=== PATIENT | female | born 1995 | race Caucasian/White ===

== ENCOUNTER 2017-08-18 21:12 | Emergency (ER) | payer OTHER ==
[~2017-08-18] VITALS: Ht 165.1 cm; Wt 81.5 kg
[2017-08-18 21:21] VITALS: TEMP 36.4; Ht 165.1 cm; Wt 81.5 kg
[2017-08-18] MEDS ORDERED: ONDANSETRON INJ 2 MG/ML 2 ML VIAL IV STA (21:47)
[2017-08-18] MEDS ORDERED: SODIUM CHLORIDE 0.9% 1000ML 1,000 ML IV STA (21:47)
[2017-08-18] MEDS ORDERED: KETOROLAC TROMETHAMINE 30 MG/ML VIAL IV STA (21:47)
[2017-08-18 22:07] VITALS: O2SAT 96
[2017-08-18 22:17] LABS: BASO % 0.4 %; BASO ABS # 0.06 K/uL (0-0.2); EOS % 1.1 %; EOS ABS # 0.18 K/uL (0-0.5); HEMATOCRIT 46.6 % (37-47); HEMOGLOBIN 15.5 g/dL (12.0-16.0); IG# 0.07 K/uL (0.00-0.02); LYMPH % 15.7 %; LYMPH ABS # 2.63 K/uL (1.2-3.4); MEAN CELL VOLUME 78.7 fL (80-100); MEAN CORPUSCULAR HEMOGLOBIN 26.2 pg (25-34); MEAN CORPUSCULAR HGB CONC 33.3 g/dl (32-36); MEAN PLATELET VOLUME 10.6 fL (7.4-10.4); MONO % 5.1 %; MONO ABS # 0.85 K/uL (0.11-0.59); NEUT % 77.3 %; NEUT ABS # 13.01 K/uL (1.4-6.5); PLATELET COUNT 355 K/uL (130-400); RED CELL DISTRIBUTION WIDTH CV 14.6 % (11.5-14.5); RED CELL DISTRIBUTION WIDTH SD 41.7 fL (36.4-46.3)
[2017-08-18 22:30] LABS: ALBUMIN 3.3 gm/dl (3.4-5.0); CALCIUM 8.4 mg/dl (8.5-10.1); CREATININE 0.83 mg/dl (0.60-1.20); POTASSIUM 3.6 mmol/L (3.5-5.1)
[2017-08-18 22:33] LABS: TOTAL PROTEIN 6.8 gm/dl (6.4-8.2)
[2017-08-18] MEDS ORDERED: BCPILLS PO (23:55)
[2017-08-18] MEDS ORDERED: VNTHFA/IN INH (23:55)
[2017-08-19 01:32] VITALS: BP 118/66; PULSE 65; O2SAT 95
--- NOTE | 2017-08-19 03:44 | EMERGENCY ROOM VISIT NOTE ---
History First contact with patient: 21:42 Chief Complaint: DIZZY Stated Complaint: DIZZY,VOMITING,CRAMPS,SWEATING Nursing Triage Summary: patient to ED via triage, states "I finally got my period and the cramping is really bad and I'm just really dizzy" History of Present Illness The patient is a 22 year old female who presents to the Emergency Room with complaints of heavy uterine bleeding with cramping for the past day who has not had a menstrual cycle in 4 months. Patient states she has abnormal menstrual cycles and quit her control 4 months ago. She is placed on control to normalize and regulate her menstrual cycles. Patient states she feels lightheaded and having cramps. Pain currently 5 out of 10 to the suprapubic region. It does not radiate. Nothing makes it better or worse. Patient denies chest pain, dyspnea, back pain, urinary symptoms, vaginal itching or discharge. She denies risk factors for STI's and does not want testing. Review of Systems An 10 system review of systems was completed with positives and pertinent negatives listed in the HPI. Past Medical/Surgical History Asthma Social History Smoking Status: Never Smoker Smokeless Tobacco Use: No Alcohol Use: occasionally Drug Use: marijuana Marital Status: single Occupation Status: [employer] student Current/Historical Medications Scheduled Control Pills ( Control Pills), 1 TAB PO DAILY Scheduled PRN Albuterol Hfa (Ventolin Hfa), 2 PUFFS INH Q4H PRN for ASTHMA ATTACK Physical Exam Vital Signs Date Time Temp Pulse Resp B/P (MAP) Pulse Ox O2 Delivery O2 Flow Rate FiO2 08/19/17 01:32 65 16 118/66 95 08/19/17 00:25 57 08/18/17 23:50 53 18 116/51 96 Room Air 08/18/17 22:07 96 Room Air 08/18/17 21:21 36.4 67 20 107/71 98 Room Air Physical Exam VITALS: Vitals are noted on the nurse's note and reviewed by myself. Vital signs stable. GENERAL: Pleasant female anxious appearing, in no acute distress, nondiaphoretic , well-developed well-nourished. SKIN: The skin was without rashes, erythema, edema, or bruising. There is no tenting of the skin. Capillary reflex less than 2 seconds. HEAD: Normocephalic atraumatic. EARS: External auditory canals clear, tympanic membranes pearly miranda without erythema or effusion bilaterally. EYES: Pupils equal round and reactive to light and accommodation. Conjunctivae without injection, sclerae without icterus. Extraocular movements intact. NOSE: Patent, turbinates without inflammation or discharge. MOUTH: Mucous membranes moist. Pharynx without erythema or exudate. Uvula midline. Airway patent. Tongue does not deviate. NECK: Supple without nuchal rigidity. No lymphadenopathy. No thyromegaly. Cervical spine is nontender. No JVD. HEART: Regular rate and rhythm without murmurs gallops or rubs. LUNGS: Clear to auscultation bilaterally without wheezes, rales or rhonchi. No retractions or accessory muscle use. ABDOMEN: Positive bowel sounds x 4. Normal tympanic percussion. Soft, tender to palpation suprapubic region, without masses or organomegaly. Olson sign negative. No guarding or rebound tenderness. No CVA tenderness MUSCULOSKELETAL: No muscle atrophy, erythema, or edema noted. NEURO: Patient was alert and oriented to person place and time. Normal sensation to light and sharp touch. No focal neurological deficits. Medical Decision & Procedures Laboratory Results 08/18/17 22:00 Red Blood Count 5.92, Mean Corpuscular Volume 78.7, Mean Corpuscular Hemoglobin 26.2, Mean Corpuscular Hemoglobin Concent 33.3, Mean Platelet Volume 10.6, Neutrophils (%) (Auto) 77.3, Lymphocytes (%) (Auto) 15.7, Monocytes (%) (Auto) 5.1, Eosinophils (%) (Auto) 1.1, Basophils (%) (Auto) 0.4, Neutrophils # (Auto) 13.01, Lymphocytes # (Auto) 2.63, Monocytes # (Auto) 0.85, Eosinophils # (Auto) 0.18, Basophils # (Auto) 0.06 08/18/17 22:00 Test 08/18/17 22:00 08/19/17 00:10 White Blood Count 16.80 K/uL (4.8-10.8) Red Blood Count 5.92 M/uL (4.2-5.4) Hemoglobin 15.5 g/dL (12.0-16.0) Hematocrit 46.6 % (37-47) Mean Corpuscular Volume 78.7 fL (80-100) Mean Corpuscular Hemoglobin 26.2 pg (25-34) Mean Corpuscular Hemoglobin Concent 33.3 g/dl (32-36) Platelet Count 355 K/uL (130-400) Mean Platelet Volume 10.6 fL (7.4-10.4) Neutrophils (%) (Auto) 77.3 % Lymphocytes (%) (Auto) 15.7 % Monocytes (%) (Auto) 5.1 % Eosinophils (%) (Auto) 1.1 % Basophils (%) (Auto) 0.4 % Neutrophils # (Auto) 13.01 K/uL (1.4-6.5) Lymphocytes # (Auto) 2.63 K/uL (1.2-3.4) Monocytes # (Auto) 0.85 K/uL (0.11-0.59) Eosinophils # (Auto) 0.18 K/uL (0-0.5) Basophils # (Auto) 0.06 K/uL (0-0.2) RDW Standard Deviation 41.7 fL (36.4-46.3) RDW Coefficient of Variation 14.6 % (11.5-14.5) Immature Granulocyte % (Auto) 0.4 % Immature Granulocyte # (Auto) 0.07 K/uL (0.00-0.02) Anion Gap 5.0 mmol/L (3-11) Est Creatinine Clear Calc Drug Dose 114.0 ml/min Estimated GFR () 117.7 Estimated GFR (Non- 101.5 BUN/Creatinine Ratio 14.8 (10-20) Calcium Level 8.4 mg/dl (8.5-10.1) Total Bilirubin 0.3 mg/dl (0.2-1) Aspartate Amino Transf (AST/SGOT) 17 U/L (15-37) Alanine Aminotransferase (ALT/SGPT) 19 U/L (12-78) Alkaline Phosphatase 52 U/L (45-117) Total Protein 6.8 gm/dl (6.4-8.2) Albumin 3.3 gm/dl (3.4-5.0) Globulin 3.5 gm/dl (2.5-4.0) Albumin/Globulin Ratio 0.9 (0.9-2) Human Chorionic Gonadotropin, Qual NEG (NEG) Urine Color MIKAELA Urine Appearance CLOUDY (CLEAR) Urine pH 6.0 (4.5-7.5) Urine Specific [place] >= 1.030 (1.000-1.030) Urine Protein 2+ (NEG) Urine Glucose (UA) NEG (NEG) Urine Ketones NEG (NEG) Urine Occult Blood 3+ (NEG) Urine Nitrite NEG (NEG) Urine Bilirubin NEG (NEG) Urine Urobilinogen NEG (NEG) Urine Leukocyte Esterase NEG (NEG) Urine RBC >30 /hpf (0-4) Urine WBC 5-10 /hpf (0-5) Urine Epithelial Cells 10-20 /lpf (0-5) Urine Bacteria NEG (NEG) Urine Mucus PRESENT (NONE PRSENT) Medications Administered Medications (Trade) Dose Ordered Sig/[place] Route Start Time Stop Time Status Last Admin Dose Admin Sodium Chloride 1,000 ml @ 999 mls/hr Q1H1M STAT IV 08/18/17 21:47 08/18/17 22:47 DC 08/18/17 21:47 999 MLS/HR Ketorolac Tromethamine (Toradol Inj) 10 mg NOW STAT IV 08/18/17 21:47 08/18/17 21:49 DC 08/18/17 22:03 10 MG Ondansetron HCl (Zofran Inj) 4 mg NOW STAT IV 08/18/17 21:47 08/18/17 21:49 DC 08/18/17 22:03 4 MG ED Course Prior records/ancillary studies reviewed. Triage Nursing notes reviewed. The patient's history was concerning for vaginal bleeding and abdominal pain. Differential diagnosis: Etiologies such as , ectopic , dysfunction uterine bleeding, bleeding dyscrasia, trauma, infection, as well as others were entertained. Physical examination: As above. Vitals signs revealed stable ER treatment provided: IV fluids, Toradol On reassessment the patient felt better. Diagnostic interpretation by me: The labs revealed stable H&H. Leukocytosis. Negative hCG. Urinalysis revealed no sign of infection and seems consistent with contamination Imaging studies: Ultrasound as above US PELVIS: Endometrial complex is fairly homogeneous and measures 1 cm. Uterus is otherwise unremarkable. Nabothian cysts. Small amount of simple free fluid in the pelvic cul-de-sac be from a ruptured ovarian cyst. Blood flow to both ovaries. No adnexal masses. Radiologist: Quintin Lenz M.D. This appears to be consistent with essential uterine bleeding and probable ruptured cyst. Patient felt much better. She did not have acute abdomen on exam. Stable H&H. Stable vital signs. She was not tachycardic. She is advised to resume her control and to follow-up with [facility] in a few days or here in the ER sooner for abdominal pain, heavy bleeding, lightheadedness, weakness, difficulty breathing, worsening signs or symptoms or as needed. By the evaluation outlined above emergent etiologies such as bleeding dyscrasia, ectopic , trauma, as well as others were deemed relatively unlikely. The pt informed about the findings as listed above. All questions were answered and pleased with the treatment. Return instructions were outlined and the patient was discharged in stable condition. Case reviewed with my attending Referral: The patient was referred to [facility] for follow-up in 2 to 3 days for a recheck of her current condition. The chart was completed utilizing [email or web address] Speech voice recognition software. Grammatical errors, random word insertions, pronoun errors, and incomplete sentences are an occassional consequence of this system due to software limitations, ambient noise, and hardware issues. Any formal questions or concerns about the content, text, or information contained within the body of this dictation should be directly addressed to the physician financial sales assistant for clarification. Medical Decision As above Medication Reconcilliation Current Medication List: was personally reviewed by me Blood Pressure Screening Patient's blood pressure: Normal blood pressure Impression Primary Impression: Dysfunctional uterine bleeding Additional Impression: Ruptured ovarian cyst Departure Information Dispostion Home / Self-Care Condition GOOD Referrals Tyshawn Milligan.MD Forms HOME CARE DOCUMENTATION FORM, School Instructions, Return To School: 1 day IMPORTANT VISIT INFORMATION Patient Instructions [facility], ED Bleed Irregular Vaginal, ED Cyst Ovarian Additional Instructions Rest. Stay well hydrated. No strenuous activity or intercourse until cleared by [facility] or symptoms have resolved. Acetaminophen(Tylenol) may be used for fever or pain. Use 1000mg every six hours as needed. Avoid using more than 3000mg in a 24 hour period. Rest and drink plenty of fluids as tolerated. Continue current medications. Return to the ER immediately for worsening or persistent heavy vaginal bleeding , abdominal pain, vomiting, fevers, chest pains, difficulty breathing, worsening of your condition, or as needed. Follow up with [facility] in 2-3 days for a recheck of your current condition. School Instructions Return To School: 1 day Problem Qualifiers
--- NOTE | 2017-08-19 07:20 | DIAGNOSTIC IMAGING REPORT ---
ULTRASOUND OF THE PELVIS CLINICAL HISTORY: Pelvic pain. Vaginal bleeding. COMPARISON STUDY: No priors. TECHNIQUE: Real-time, grayscale, and color flow sonography of the pelvis is performed both transabdominally and endovaginally. Images are reviewed in the transverse and longitudinal planes. FINDINGS: Uterus: The uterus is normal in size and echotexture, measuring 8.6 x 3.7 x 3.8 cm. Tiny nabothian cysts are incidentally noted. Endometrium: The endometrium is normal in appearance, and the endometrial stripe is normal in thickness measuring up to 1.1 cm. Ovaries: The ovaries are normal in size and morphology. The right ovary measures 3.6 x 2.2 x 2.6 cm and the left ovary measures 2.7 x 2.3 x 2.6 cm. Numerous small follicles are seen bilaterally. Normal Doppler waveforms are shown within both ovaries. Pelvis: There is a small volume of minimally complex free fluid in the cul-de-sac. No concerning adnexal lesion is seen. IMPRESSION: 1. No acute sonographic abdomen mild is identified in the pelvis. 2. There is a small volume of free fluid in the cul-de-sac, likely within physiologic limits. Electronically signed by: Lawrence Frye M.D. 08/19/2017 7:19 AM Dictated Date/Time: 08/19/2017 7:17 AM
== END 2017-08-19 01:32 | disposition home or self-care (01) ==
LOC: C.EDB 21:14 → C.EDC 08-19 01:32
DX: N93.8 Other specified abnormal uterine and vaginal bleeding (principal); N83.209 Unspecified ovarian cyst, unspecified side; J45.909 Unspecified asthma, uncomplicated; F12.90 Cannabis use, unspecified, uncomplicated